=== PATIENT | female | born 1965 | race Caucasian/White ===

== ENCOUNTER 2017-04-23 09:26 | Emergency (ER) | payer BC ==
[2017-04-23 09:40] VITALS: BP 157/79
--- NOTE | 2017-04-23 10:15 | UC ---
Respiratory Complaint HPI - HPI Summary HPI Summary: Patient presents with complaints of generalized fatigue, malaise and body aches x 3 days. She also complains of chest congestion, and coughing. She report tactile fever at home, but has not taken her actual temperature. She denies chest pain, dyspnea, abdominal pain, nausea, vomiting or diarrhea, rash or joint pain. - History of Current Complaint Chief Complaint: UCGeneralIllness Stated Complaint: CONGESTION Time Seen by Provider: 04/23/17 09:57 Hx Obtained From: Patient Hx Last Menstrual Period: 2-3 weeks ago. ?: No Onset/Duration: Gradual Onset, Lasting Days Timing: Constant Severity Initially: Mild Severity Currently: Moderate Character: Cough: Nonproductive Aggravating Factors: Nothing Alleviating Factors: Spontaneous Resolution Associated Signs And Symptoms: Positive: URI, Nasal Congestion - Risk Factors Pulmonary Embolism Risk Factors: Negative Cardiac Risk Factors: Negative Pseudomonas Risk Factors: Negative Tuberculosis Risk Factors: Negative - Allergies/Home Medications Allergies/Adverse Reactions: Allergies Allergy/AdvReac Type Severity Reaction Status Date / Time No Known Allergies Allergy Verified 04/23/17 09:34 Home Medications: Home Medications Coricidin D Cold/Flu/Sinu 2-5-325 mg 04/23/17 [History] PMH/Surg Hx/FS Hx/Imm Hx Previously Healthy: Yes Other History Of: Negative For: HIV, Hepatitis B, Hepatitis C, Anticoagulant Therapy - Surgical History Surgical History: None - Family History Known Family History: Positive: Hypertension Negative: Cardiac Disease, Respiratory Disease - Social History Occupation: Employed Full-time Lives: Alone Alcohol Use: None Substance Use Type: None Smoking Status (MU): Never Smoked Tobacco - Immunization History Most Recent Influenza Vaccination: Fall 2014 Review of Systems Constitutional: Fatigue Skin: Negative Eyes: Negative ENT: Nasal Discharge, Sinus Congestion, Sinus Pain/Tenderness Respiratory: Cough Cardiovascular: Negative Gastrointestinal: Negative Genitourinary: Negative Motor: Negative Neurovascular: Negative Is Patient Immunocompromised?: No All Other Systems Reviewed And Are Negative: Yes Physical Exam Triage Information Reviewed: Yes Appearance: Well-Appearing Vital Signs: Initial Vital Signs Temp 101.2 F 04/23/17 09:37 Pulse 117 04/23/17 09:37 Resp 16 04/23/17 09:37 BP 157/79 04/23/17 09:37 Pulse Ox 100 04/23/17 09:37 Vital Signs Reviewed: Yes Eye Exam: Normal ENT Exam: Normal Neck exam: Normal Neck: Positive: 1 Respiratory Exam: Normal Cardiovascular Exam: Normal Skin Exam: Normal UC Diagnostic Evaluation - Laboratory O2 Sat by Pulse Oximetry: 100 Respiratory Course/Dx - Course Course Of Treatment: Patient presents with one day onset complaints of generalized fatigue and malaise, with chest congestion and coughing. No reported comorbidities. VS patient has temperatue of 101 in the clinic. Influenze scree A positive. Patient was treated with tamiflu 75 mg bid x 5 days. Although se reports a cough, he lung exam was normal, no respiratroy distress noted, and no hypoxemia per vital signs. I recommend she rest, increase fluids OTC medication for other symtpoms as needed and if symtpom worsen go to ER. She did verbalized understanding and was in agreement with the discharge plan. - Differential Dx/Diagnosis Differential Diagnosis/HQI/PQRI: Influenza Provider Diagnoses: influenza Discharge - Discharge Plan Condition: Stable Disposition: HOME Prescriptions: Oseltamivir CAP* [Tamiflu CAP*] 75 mg PO BID #10 cap Patient Education Materials: Influenza (ED) Referrals: Melva Canada NP [Primary Care Provider] -
== END 2017-04-23 10:25 | disposition home or self-care (01) ==
LOC: UCEAST 09:26
DX: J11.1 Influenza due to unidentified influenza virus with other respiratory manifestations (principal)
CPT/HCPCS: 87502; 99212; G0463

== ENCOUNTER 2018-04-21 21:30 | Emergency (ER) | payer BC ==
--- NOTE | 2018-04-21 22:28 | ED ---
Abdominal Pain/Female - HPI Summary HPI Summary: A 52 y/o female accompanied by her presents to the ED c/o right upper quadrant abdominal pain. Currently, the patient is experiencing RUQ abdominal pain reaching 7/10 in severity and she does not feel right. In the ED room, the patient has a pulse of 91 BPM, O2 saturation of 100%, and blood pressure of 184/ 140. As per triage, "Pt c/o mid-upper back pain radiating to her right axilla and just under her right breast. Pt anxious at this time and not able to answer questions. Pt crying". According to the patient, she is having a panic attack now and has severe anxiety. She stated that it initially started as upper back pain, however, now it has moved towards her the RUQ of her abdomen. Patient noted that she was shoveling snow earlier, but the pain didn't start till 1800- 1900 today when they were sitting around doing nothing. She characterized the back pain as a pressure, but now it does not hurt in her back anymore. Now, it is in her the RUQ of her abdomen and it is a dull/aching feeling, not stabbing. She denies any nausea, vomiting, and SOB. No abdomen surgeries of any kind. SHx of no ETOH or smoking. - History of Current Complaint Chief Complaint: EDBackInjuryPain Stated Complaint: BACK PAIN Time Seen by Provider: 04/21/18 22:03 Hx Obtained From: Patient Hx Last Menstrual Period: 2-3 weeks ago. Onset/Duration: Sudden Onset, Lasting Hours, Still Present Timing: Constant Severity Initially: Moderate Severity Currently: Moderate Pain Intensity: 7 Pain Scale Used: 0-10 Numeric Location: Discrete At: RUQ Radiates: No Radiates to: Other - INITIALLY STARTED IN BACK, NOW IN RUQ ABDOMEN. NO MORE PAIN IN BACK. Character: Dull Aggravating Factor(s): Nothing Alleviating Factor(s): Nothing Associated Signs and Symptoms: Positive: Back Pain Allergies/Adverse Reactions: Allergies Allergy/AdvReac Type Severity Reaction Status Date / Time No Known Allergies Allergy Verified 04/21/18 21:41 PMH/Surg Hx/FS Hx/Imm Hx Endocrine/Hematology History: Denies: Hx Anticoagulant Therapy, Hx Diabetes, Hx Thyroid Disease Cardiovascular History: Reports: Hx Hypertension - Not meds Denies: Hx Congestive Heart Failure, Hx Deep Vein Thrombosis, Hx Myocardial Infarction, Hx Pacemaker/ICD Respiratory History: Denies: Hx Asthma, Hx Chronic Obstructive Pulmonary Disease (COPD), Hx Lung Cancer, Hx Pneumonia, Hx Pulmonary Embolism GI History: Denies: Hx Gall Bladder Disease, Hx Gastrointestinal Bleed, Hx Ulcer, Hx Urosepsis History: Denies: Hx Kidney Stones, Hx Renal Disease Neurological History: Denies: Hx Dementia, Hx Migraine, Hx Seizures, Hx Transient Ischemic Attacks (TIA) Psychiatric History: Denies: Hx Anxiety, Hx Depression, Hx Schizophrenia, Hx Bipolar Disorder - Surgical History Surgery Procedure, Year, and Place: PER PATIENT, NO PRIOR SURGERIES NOTED. Infectious Disease History: No Infectious Disease History: Denies: History Other Infectious Disease, Traveled Outside the [place] in Last 30 Days - Family History Known Family History: Positive: Hypertension Negative: Cardiac Disease, Respiratory Disease - Social History Alcohol Use: None Substance Use Type: Reports: None Smoking Status (MU): Never Smoked Tobacco Review of Systems Negative: Fever Negative: Shortness Of Breath Positive: Abdominal Pain - RUQ. Negative: Vomiting, Nausea Positive: Other - POSITIVE: BACK PAIN Positive: Anxious All Other Systems Reviewed And Are Negative: Yes Physical Exam - Summary Physical Exam Summary: Appearance: Well appearing Skin: warm, dry, reflects adequate perfusion Head/face: normal Eyes: EOMI, LEONARD ENT: normal Neck: supple, non-tender Respiratory: CTA, breath sounds present Cardiovascular: RRR, pulses symmetrical Abdomen: tenderness in RUQ Musculoskeletal: normal, strength/ROM intact Neuro: normal, sensory motor intact, A&Ox3 Psych: Patient is anxious/nervous Triage Information Reviewed: Yes Vital Signs On Initial Exam: Initial Vitals Temp Pulse Resp BP Pulse Ox 98.8 F 102 20 205/108 100 04/21/18 21:36 04/21/18 21:36 04/21/18 21:36 04/21/18 21:36 04/21/18 21:36 Vital Signs Reviewed: Yes Diagnostics - Vital Signs Vital Signs Temp Pulse Resp BP Pulse Ox 04/21/18 22:00 87 33 100 04/21/18 21:56 88 17 184/140 99 04/21/18 21:55 89 21 100 04/21/18 21:42 203/93 04/21/18 21:36 98.8 F 102 20 205/108 100 - Laboratory Result Diagrams: 04/21/18 22:34 04/21/18 22:34 Lab Statement: Any lab studies that have been ordered have been reviewed, and results considered in the medical decision making process. - Radiology CXR Radiology Interpretation Completed By: ED Physician Summary of Radiographic Findings: NO ACUTE INFILTRATE. PENDING OFFICIAL REPORT. - CT CT A/P CT Interpretation Completed By: Radiologist Summary of CT Findings: 1. Cholelithiasis without additional findings of acute cholecystitis, although CT is much less sensitive than ultrasound. 2. Nonspecific hepatomegaly. ED PHYSICIAN REVIEWED THIS RADIOLOGY REPORT. - Ultrasound No standard instances Ultrasound Interpretation Completed By: Radiologist Summary of Ultrasound Findings: GALLBLADDER US: 1. Sensitive findings for acute cholecystitis. 2. Hepatic steatosis and associated hepatomegaly. ED PHYSICIAN REVIEWED THIS RADIOLOGY REPORT. - EKG 2141 Cardiac Rate: NL - 95 BPM EKG Rhythm: Sinus Rhythm - 95 BPM Summary of EKG Findings: NO ACUTE CHANGES Re-Evaluation - Re-Evaluation Second Eval Re-Evaluation Time: 01:45 Change: Improved Comment: PATIENT FEELS MUCH BETTER. Abdominal Pain Fem Course/Dx - Course Course Of Treatment: A 52 y/o female accompanied by her presents to the ED c/o right upper quadrant abdominal pain. Currently, the patient is experiencing RUQ abdominal pain reaching 7/10 in severity and she does not feel right. In the ED room, the patient has a pulse of 91 BPM, O2 saturation of 100% , and blood pressure of 184/140. According to the patient, she is having a panic attack now and has severe anxiety. She stated that it initially started as upper back pain, however, now it has moved towards her the RUQ of her abdomen. Patient noted that she was shoveling snow earlier, but the pain didn't start till [id number] today when they were sitting around doing nothing. She characterized the back pain as a pressure, but now it does not hurt in her back anymore. Now, it is in her the RUQ of her abdomen and it is a dull/aching feeling, not stabbing. She denies any nausea, vomiting, and SOB. No abdomen surgeries of any kind. Physical examination findings significant for tenderness in RUQ, anxiety/nervous, obvious pain distress. A CXR revealed no acute infiltrate. A CT A/P revealed 1. Cholelithiasis without additional findings of acute cholecystitis, although CT is much less sensitive than ultrasound. 2. Nonspecific hepatomegaly. A Gallbladder US revealed 1. Sensitive findings for acute cholecystitis. 2. Hepatic steatosis and associated hepatomegaly. An EKG revealed a NSR of 95 BPM, no acute changes. Hematology, Chemistry, and urinalysis screens were done. No significant laboratory abnormalities were found. In the ED course, the patient received Apresoline, Omnipaque, and Toradol. Patient care was discussed with Dr. Auguste who recommended CAT scan. During re-evaluation, the patient indicated that she was feeling much better. Patient will be discharged with a diagnosis of abdominal pain, cholelithiasis, and gallstones. Patient will be sent home with prescriptions for Ultram and is to take medication as prescribed. Patient is to follow up with primary care provider in 2-3 days. Patient is to return to ED for any new or worsening symptoms. Patient is agreeable with this plan. - Diagnoses Differential Diagnosis: Positive: Diverticulitis, Gall Bladder Disease, Pancreatitis, Pneumonia, Urinary Tract Infection Provider Diagnoses: Abdominal pain, Cholelithiasis, Gallstones - Provider Notifications Discussed Care Of Patient With: Arian Auguste Time Discussed With Above Provider: 00:08 Instructed by Provider To: Other - RECOMMENDS CAT SCAN. Discharge - Sign-Out/Discharge Documenting (check all that apply): Patient Departure - DISCHARGE - Discharge Plan Condition: Stable Disposition: HOME Prescriptions: traMADol TAB* [Ultram*] 50 mg PO TID #15 tab MDD 3 Patient Education Materials: Gallstones (ED), Abdominal Pain (ED) Referrals: Melva Canada NP [Primary Care Provider] - 3 Days Additional Instructions: TAKE MEDICATIONS PRESCRIBED. FOLLOW UP WITH PRIMARY CARE PROVIDER IN 2-3 DAYS. RETURN TO ED FOR ANY NEW OR WORSENING SYMPTOMS. - Billing Disposition and Condition Condition: STABLE Disposition: Home - Attestation Statements Document Initiated by Doloresibe: Yes Documenting Scribe: Glen Upton Provider For Whom Paola is Documenting (Include Credential): Graeme Best MD Scribe Attestation: Glen Light scribed for Graeme Best MD on 04/22/18 at 0245. Scribe Documentation Reviewed: Yes Provider Attestation: The documentation as recorded by the Glen serrano accurately reflects the service I personally performed and the decisions made by me, Graeme Best MD Status of Scribe Document: Viewed
[2018-04-21 22:42] LABS: ABS Basophils 0 10^3/ul (0-0.2); ABS Eosinophils 0.2 10^3/ul (0-0.6); ABS Lymphocytes 1.4 10^3/ul (1.0-4.8); ABS Monocytes 0.5 10^3/ul (0-0.8); ABS Neutrophils 4.6 10^3/ul (1.5-7.7); ABS Nucleated RBC 0 10^3/ul; Eosinophil % 2.3 %; Hematocrit 45 % (35-47); Hemoglobin 15.5 g/dl (12.0-16.0); Lymphocyte % 20.5 %; Mean Corpuscular HGB Conc 34 g/dl (31-36); Mean Corpuscular Hemoglobin 28 pg (27-31); Mean Corpuscular Volume 81 fL (80-97); Mean Platelet Volume 8.5 fL (7.4-10.4); Nucleated Red Blood Cells % 0.1; Platelet Count 290 10^3/ul (150-450); Red Blood Count 5.58 10^6/ul (4.00-5.40); Red Cell Distribution Width 14 % (10.5-15); White Blood Count 6.7 10^3/ul (3.5-10.8)
[2018-04-21 22:43] LABS: Urine Appearance Clear; Urine Bacteria Absent (Absent); Urine Bilirubin Negative (Negative); Urine Blood Negative (Negative); Urine Color Colorless; Urine Glucose 2+(150 mg/dL) (Negative); Urine Ketones Negative (Negative); Urine Nitrite Negative (Negative); Urine Protein Negative (Negative); Urine Red Blood Cell Absent (Absent); Urine Specific Gravity 1.009 (1.010-1.030); Urine Urobilinogen Negative (Negative); Urine White Blood Cell 1+(6-10/hpf) (Absent)
[2018-04-21 22:59] LABS: Albumin 4.5 g/dL (3.2-5.2); Albumin/Globulin Ratio 1.5 (1-3); BUN/Creatinine Ratio 21.7 (8-20); Calcium 9.7 mg/dL (8.6-10.3); EGFR Non-African American 64.4 (>60); Total Bilirubin 0.3 mg/dL (0.2-1.0); Total Protein 7.5 g/dL (6.4-8.9)
[2018-04-21 23:04] LABS: HCG Pregnancy 1.87 mIU/mL
[2018-04-21] MEDS ORDERED: hydrALAZINE IV* 20 MG/ML VIAL IV SLOW PU ONE (23:13)
[2018-04-21 23:15] LABS: Activated Partial Thrombo Time 32.6 seconds (26.0-36.3)
[2018-04-21 23:22] LABS: Potassium 3.7 mmol/L (3.5-5.0)
[2018-04-21] MEDS ORDERED: Ketorolac INJ* 30 MG/ML 1 ML VIAL IV PUSH ONE (23:35)
[2018-04-22] MEDS ORDERED: Iohexol 300* (CONTRAST) 10 ML SDV IV ONE (01:02)
[2018-04-22] MEDS ORDERED: traMADol TAB* 50 MG PO ONE (02:11)
[2018-04-22 02:39] VITALS: BP 173/89
== END 2018-04-22 02:34 | disposition home or self-care (01) ==
LOC: ED 21:30
DX: R10.11 Right upper quadrant pain (principal); K80.70 Calculus of gallbladder and bile duct without cholecystitis without obstruction; M54.9 Dorsalgia, unspecified; I10 Essential (primary) hypertension
CPT/HCPCS: 36415; 71045; 74177; 76705; 80053; 81003; 81015; 83690; 84484; 84702; 85025; 85379; 85610; 85730; 87086; 93005; 96374; 96375; 99283; A9270-GY; J0360; J1885; Q9967